=== PATIENT | male | born 1980 | race Hispanic/Latino ===

== ENCOUNTER 2024-01-04 11:59 | Emergency (ER) | payer OTHER ==
[~2024-01-04] VITALS: Ht 182.9 cm; Wt 90.7 kg
[2024-01-04 12:49] LABS: HEMATOCRIT 39.1 % (42-54); MEAN CORPUSCULAR HEMOGLOBIN 28.9 pg (27.0-33.0); MEAN CORPUSCULAR HGB CONC 34.3 g/dL (32.0-36.0); MEAN CORPUSCULAR VOLUME 84.3 fL (79-99); RED BLOOD CELL COUNT(AUTO) 4.64 MIL/uL (4.50-6.20); RED CELL DISTRIBUTION WIDTH 12.8 % (11.0-15.5); WHITE BLOOD COUNT (AUTO) 11.7 K/uL (4.8-10.8)
[2024-01-04 13:05] LABS: CREATININE 0.9 mg/dL (0.5-1.3); POTASSIUM 3.9 mmol/L (3.5-5.1)
[2024-01-04 13:09] LABS: ALBUMIN 3.8 g/dL (3.5-5.0); BILIRUBIN,TOTAL 0.3 mg/dL (0.2-1.0); TOTAL PROTEIN, SERUM 6.9 g/dL (6.0-8.3)
[2024-01-04] MEDS: LORAZEPAM 2 MG/ML 1 ML VIAL IVP ONE (13:25)
[2024-01-04 15:49] VITALS: BP 159/92; PULSE 85; RESP 18; O2SAT 99
[2024-01-04] MEDS: ACETAMINOPHEN 325 MG TAB ONE (16:04)
[2024-01-04] MEDS: ACETAMINOPHEN 325 MG TAB PO ONE (16:04)
== END 2024-01-04 16:34 | disposition home or self-care (01) ==
LOC: EDH 11:59
DX: R07.89 Other chest pain (principal)
CPT/HCPCS: 99285; 96374; 71045; 84484 ×2; 80053; 85027; 36415; 93005; J2060